=== PATIENT | male | born 1985 | race Caucasian/White ===

== ENCOUNTER → 2019-07-20 11:23 | Outpatient (BNVA) | payer SELFPAY | PROVIDERS: Family Provider Nurse Practitioner Family; PCP Nurse Practitioner Family; Referring Provider Specialist; Visit Provider Specialist | DX: S69.82XA Other specified injuries of left wrist, hand and finger(s), initial encounter (principal); X58.XXXA Exposure to other specified factors, initial encounter | CPT/HCPCS: 73090; 73110 ==

== ENCOUNTER 2019-07-21 11:07 | Day surgery (SDC) | payer OTHER, SELFPAY ==
[2019-07-20 15:45] VITALS: BMI 35.6
[2019-07-21] VITALS (13 sets, daily range): BP systolic 125–143; BP diastolic 77–89; PULSE 72–107; RESP 15–22; TEMP 36.1–37.4; O2SAT 94–100
--- NOTE | 2019-07-21 | SCC_ITS ---
Procedure Done: Open reduction internal fixation left proximal third comminuted ulnar shaft fracture 23.1 seconds of fluoroscopic guidance, for a cumulative dose of 0.83 mGy, was provided to Dr. Madison by the radiology department. C-arm images of the LEFT forearm were saved for the patient's permanent record. [facility]
--- NOTE | 2019-07-21 | XR_ITS ---
WS: [id number] Left forearm, 2 views C-arm fluoroscopy, 07/21/2019 Clinical Data: ORIF LEFT FOREARM Comparison: Left forearm, 07/20/2019. Findings: The fracture of the junction of the proximal and middle thirds of the ulna has been reduced with the aid of an orthopedic plate fixed to the ulna with 6 orthopedic screws. XR/XR forearm LT 2V 30275 Impression: Internal fixation of left ulnar fracture.
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
--- NOTE | 2019-07-21 12:45 | ANES.PROC ---
Anesthesia Procedures Procedure/Date: 07/21/19 Nerve Block ^: Nerve Block 1: Main Anesthesia: general anesthesia Time Out Performed: Yes Consent: requested by attending/covering physician, from patient, risks and benefits reviewed and patient agrees to proceed Nerve block location: supraclavicular (L) Anesthesia monitors applied: pulse oximetry, BP cuff and oxygen Nerve block position: semi sitting Anesthetic Used: ropivicaine 0.5% and with decadron (4 mg) Amount of anesthesia used (mL): 30 Ultrasound used to: in supraclavicular region Nerve Stimulator Used?: No Interscalene/Femoral BLK: 4 stimuplex 21 g needle used for position and inplane approach Injection: neg aspiration of heme Patient Tolerated Procedure: well and no complications Complications: none Additional Comments: fentanyl 50 mcg, versed 2 mg
[2019-07-21] MEDS: sodium chloride 0.9% 1,000 ML 30 ML IV (13:14)
[2019-07-21] MEDS: CELEcoxib 200 mg Capsule 400 MG PO (13:14)
[2019-07-21] MEDS: scopolamine 1.5 Patch 1 PATCH TRANSDERMA (13:15)
[2019-07-21] MEDS: ceFAZolin 1,000 mg SDV 1000 MG IRRIGATION (13:59)
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
[2019-07-21] MEDS: ondansetron 2 mg/ML SDV 2 mL 4 MG IVP ×2 (16:12→16:17)
[2019-07-21] MEDS: metoclopramide 5 mg/mL SDV 2 mL 10 MG IVP (16:22)
[2019-07-21] MEDS: dexamethasone 4 mg/mL INJ IVP ×2 (16:29→17:04)
== END 2019-07-21 17:50 | disposition home or self-care (01) ==
PROVIDERS: Family Provider Nurse Practitioner Family; PCP Nurse Practitioner Family; Visit Provider Specialist
PROC: (CPT 25545; principal; 2019-07-21 13:00)
DX: S52.201A Unspecified fracture of shaft of right ulna, initial encounter for closed fracture (principal); W22.8XXA Striking against or struck by other objects, initial encounter; E66.01 Morbid (severe) obesity due to excess calories; Z68.35 Body mass index [BMI] 35.0-35.9, adult
CPT/HCPCS: 25545; 12345; 73090; 76000; 96365; 96374; 96375; C1713; J0131; J0690; J1100; J2405; J2704; J2765; J2795; J3010; J3490; J7030

== ENCOUNTER → 2019-08-10 10:07 | Outpatient (BNVA) | payer SELFPAY | PROVIDERS: Family Provider Nurse Practitioner Family; PCP Nurse Practitioner Family; Visit Provider Specialist | DX: S52.251A Displaced comminuted fracture of shaft of ulna, right arm, initial encounter for closed fracture (principal); X58.XXXA Exposure to other specified factors, initial encounter | CPT/HCPCS: 73090 ==

== ENCOUNTER → 2020-02-11 09:01 | Outpatient (BNVA) | payer SELFPAY | PROVIDERS: Family Provider Nurse Practitioner Family; PCP Nurse Practitioner Family; Visit Provider Specialist | DX: Z47.89 Encounter for other orthopedic aftercare (principal); S52.002D Unspecified fracture of upper end of left ulna, subsequent encounter for closed fracture with routine healing; X58.XXXD Exposure to other specified factors, subsequent encounter | CPT/HCPCS: 73090 ==

== ENCOUNTER 2020-02-11 13:17 | Outpatient (CLI) | payer SELFPAY | END 2020-02-11 13:18 | disposition home or self-care (01) | LOC: SPT 13:17 | PROVIDERS: Family Provider Nurse Practitioner Family; PCP Nurse Practitioner Family; Visit Provider Specialist | DX: Z47.89 Encounter for other orthopedic aftercare (principal); S52.292D Other fracture of shaft of left ulna, subsequent encounter for closed fracture with routine healing; X58.XXXD Exposure to other specified factors, subsequent encounter | CPT/HCPCS: 97760; L3982 ==

== ENCOUNTER → 2020-02-25 11:42 | Outpatient (BNVA) | payer SELFPAY | PROVIDERS: Family Provider Nurse Practitioner Family; PCP Nurse Practitioner Family; Visit Provider Specialist | DX: S52.251A Displaced comminuted fracture of shaft of ulna, right arm, initial encounter for closed fracture (principal); X58.XXXA Exposure to other specified factors, initial encounter | CPT/HCPCS: 73090 ==

== ENCOUNTER → 2020-03-17 08:22 | Outpatient (BNVA) | payer SELFPAY | PROVIDERS: Family Provider Nurse Practitioner Family; PCP Nurse Practitioner Family; Visit Provider Specialist | DX: S52.292A Other fracture of shaft of left ulna, initial encounter for closed fracture (principal); X58.XXXA Exposure to other specified factors, initial encounter | CPT/HCPCS: 73090 ==

== ENCOUNTER 2020-03-22 06:00 | Outpatient (CLI) | payer SELFPAY | END 2020-03-22 06:01 | disposition home or self-care (01) | LOC: SOT 12-27 14:04 | PROVIDERS: Family Provider Nurse Practitioner Family; PCP Nurse Practitioner Family; Referring Provider Specialist; Visit Provider Specialist | DX: S52.202D Unspecified fracture of shaft of left ulna, subsequent encounter for closed fracture with routine healing (principal); X58.XXXD Exposure to other specified factors, subsequent encounter | CPT/HCPCS: L3919 ==

== ENCOUNTER → 2020-04-25 08:25 | Outpatient (BNVA) | payer SELFPAY | PROVIDERS: Family Provider Nurse Practitioner Family; PCP Nurse Practitioner Family; Visit Provider Specialist | DX: S52.251A Displaced comminuted fracture of shaft of ulna, right arm, initial encounter for closed fracture (principal); S52.292A Other fracture of shaft of left ulna, initial encounter for closed fracture; X58.XXXA Exposure to other specified factors, initial encounter | CPT/HCPCS: 73090 ==

== ENCOUNTER → 2020-08-03 08:20 | Outpatient (BNVA) | payer SELFPAY | PROVIDERS: Family Provider Nurse Practitioner Family; PCP Nurse Practitioner Family; Visit Provider Specialist | DX: S52.002D Unspecified fracture of upper end of left ulna, subsequent encounter for closed fracture with routine healing (principal); X58.XXXD Exposure to other specified factors, subsequent encounter | CPT/HCPCS: 73090 ==

== ENCOUNTER → 2024-03-17 08:25 | Outpatient (BNVA) | payer OTHER, SELFPAY | PROVIDERS: PCP Nurse Practitioner Family; Visit Provider Orthopaedic Surgery | DX: S82.002A Unspecified fracture of left patella, initial encounter for closed fracture; X58.XXXA Exposure to other specified factors, initial encounter | CPT/HCPCS: 73560 ==

== ENCOUNTER → 2024-04-14 08:37 | Outpatient (BNVA) | payer OTHER, SELFPAY | PROVIDERS: PCP Nurse Practitioner Family; Visit Provider Orthopaedic Surgery | DX: M25.561 Pain in right knee (principal) | CPT/HCPCS: 73560 ==